=== PATIENT | male | born 1945 | race Caucasian/White ===

== ENCOUNTER 2018-06-05 10:46 | Emergency (ER) | payer MEDICARE, BC ==
[~2018-06-05] VITALS: Ht 175.3 cm; Wt 127.3 kg
[~2018-06-05 10:46] MED LIST: ALPR0.5T8 PO; AMLO2.5T2 PO; ATOR20TA66 PO; ERGO500014 PO; GABA-532 PO; TRAM50TA2 PO
[2018-06-05 11:19] VITALS: BP 148/95
[2018-06-05] MEDS ORDERED: CEPH-572 PO (13:28)
== END 2018-06-05 13:46 | disposition home or self-care (01) ==
LOC: ER 10:46
DX: S81.002A Unspecified open wound, left knee, initial encounter (principal); R22.42 Localized swelling, mass and lump, left lower limb; I10 Essential (primary) hypertension; Z79.899 Other long term (current) drug therapy; W01.0XXA Fall on same level from slipping, tripping and stumbling without subsequent striking against object, initial encounter; Y93.89 Activity, other specified; Y92.89 Other specified places as the place of occurrence of the external cause; Y99.8 Other external cause status
CPT/HCPCS: 73564; 93971; 99284